=== PATIENT | male | born 1985 | race African-American/Black ===

== ENCOUNTER 2019-10-20 11:09 | Emergency (ER) | payer MEDICAID ==
[~2019-10-20] VITALS: Ht 177.8 cm; Wt 70.3 kg
[2019-10-20 11:14] VITALS: BP 127/75
[2019-10-20 11:47] VITALS: BP 127/75
== END 2019-10-20 11:47 | disposition home or self-care (01) ==
LOC: MED 11:09
DX: H60.92 Unspecified otitis externa, left ear (principal)
CPT/HCPCS: 99283

== ENCOUNTER 2019-11-17 10:11 | Emergency (ER) | payer MEDICAID ==
[~2019-11-17] VITALS: Ht 177.8 cm; Wt 70.3 kg
[2019-11-17 10:20] VITALS: BP 131/80
--- NOTE | 2019-11-17 10:20 | NUR ---
Pt taken to hallway bed C triaged at bedside.
--- NOTE | 2019-11-17 10:28 | NUR ---
33/M presents to ED with complaints of left ear pain x1 month. Pt states he has been treated with amoxcillin PO and Cipro otic drops with no relief. Patient denies any fever or chills. Patient c/o 06/07, dull, non raditing pain. Pt denies any drainage. Denies taking any medications prior to arrival. Pt is AOX4, clear speech. VSS.
--- NOTE | 2019-11-17 10:33 | NUR ---
Patient being evaluated by Dr. Caruso at bedside.
[2019-11-17 10:40] VITALS: BP 131/80
--- NOTE | 2019-11-17 10:40 | NUR ---
Patient discharged with v/s stable. Written and verbal after care instructions given and explained. Patient alert, oriented and verbalized understanding of instructions. Ambulatory with steady gait. All questions addressed prior to discharge. ID band removed. Patient advised to follow up with PMD. Rx of Ciprofloxacin Hydrochloride 500mg and Debrox 6.5% otic drops given. Patient educated on indication of medication including possible reaction and side effects. Opportunity to ask questions provided and answered.
== END 2019-11-17 10:40 | disposition home or self-care (01) ==
LOC: MED 10:11
DX: H60.92 Unspecified otitis externa, left ear (principal)
CPT/HCPCS: 99283

== ENCOUNTER 2020-09-14 03:50 | Emergency (ER) | payer MEDICAID ==
[~2020-09-14] VITALS: Ht 177.8 cm; Wt 70.3 kg
--- NOTE | 2020-09-14 03:59 | NUR ---
TO BED AMBULATORY
--- NOTE | 2020-09-14 04:08 | NUR ---
Dr. Caruso examining patient.
--- NOTE | 2020-09-14 04:24 | NUR ---
taken to CT via w/c
[2020-09-14] MEDS ORDERED: CYCL-711 PO (04:52)
--- NOTE | 2020-09-14 05:12 | NUR ---
d/c with VSS. d/c education given. opportunity to ask questions given and answered. rx of flexeril given.
== END 2020-09-14 05:12 | disposition home or self-care (01) ==
LOC: MED 03:50
DX: R20.2 Paresthesia of skin (principal)
CPT/HCPCS: 70450; 99284

== ENCOUNTER 2023-07-28 18:22 | Emergency (ER) | payer MEDICAID ==
[~2023-07-28] VITALS: Ht 177.8 cm; Wt 68.0 kg
[~2023-07-28 18:22] MED LIST: CYCL-711 PO
[2023-07-28 18:35] VITALS: BP 140/89; PULSE 102; RESP 18; TEMP 98.7; O2SAT 100
[2023-07-28 19:34] VITALS: O2SAT 98
[2023-07-28 19:55] LABS: BASOPHILS % (AUTO) 0.5 % (0.0-2.0); EOSINOPHILS # (AUTO) 0.1 K/uL (0-0.4); EOSINOPHILS % (AUTO) 1.1 % (0.0-4.0); HEMOGLOBIN 13.9 g/dL (12.0-18.0); LYMPHOCYTES # (AUTO) 1.4 K/uL (2.0-11.5); LYMPHOCYTES % (AUTO) 20.4 % (20.5-51.1); MEAN CORPUSCULAR HEMOGLOBIN 31 pg (27-31); MEAN CORPUSCULAR HGB CONC 36 g/dL (33-37); MONOCYTES # (AUTO) 0.9 K/uL (0.8-1.0); MONOCYTES % (AUTO) 13.3 % (1.7-9.3); NEUTROPHILS # (AUTO) 4.4 K/uL (1.8-7.7); NEUTROPHILS % (AUTO) 64.7 % (42.2-75.2); PLATELET COUNT (AUTO) 314 K/uL (140-450); RED BLOOD CELL COUNT(AUTO) 4.53 MIL/uL (4.20-6.10); RED CELL DISTRIBUTION WIDTH 12.5 % (11.6-13.7); WHITE BLOOD COUNT (AUTO) 6.8 K/uL (4.8-10.8)
[2023-07-28 20:06] LABS: ANION GAP 14.9 (8-16); CALCIUM 9.1 mg/dL (8.5-10.1); CARBON DIOXIDE 27.1 mmol/L (21-32); CREATININE 1.1 mg/dL (0.6-1.3)
[2023-07-28 23:36] VITALS: BP 149/91; PULSE 71; RESP 16; TEMP 98.7; O2SAT 99
== END 2023-07-28 23:36 | disposition home or self-care (01) ==
LOC: MED 18:22
DX: R07.89 Other chest pain (principal); J45.909 Unspecified asthma, uncomplicated; Z79.899 Other long term (current) drug therapy
CPT/HCPCS: 36415; 71045; 71275; 80048; 83880; 84484; 85025; 85379; 93005; 99285; Q9967